=== PATIENT | female | born 1960 | race American Indian/Alaskan Native ===

== ENCOUNTER 2017-09-07 05:39 | Day surgery (SDC) | payer OTHER ==
[~2017-09-07 05:39] MED LIST: ANCEF/STERILE WATER 2 GM/20 ML 2 GM/20 ML SYRINGE IV NR
[2017-09-07] MEDS ORDERED: NACL BACTERIOSTATIC INFILTRATI ONE (06:35)
[2017-09-07] MEDS ORDERED: ADRENALIN IV ONE ×2 (06:55→08:10)
[2017-09-07] MEDS ORDERED: NACL 0.9% 1000 ML 1,000 ML IV SCH (07:20)
[2017-09-07] MEDS ORDERED: XYLOCAINE MPF 2% ONE (07:21)
[2017-09-07] MEDS ORDERED: DIPRIVAN 10 MG/ML IV ONE (07:22)
[2017-09-07] MEDS ORDERED: MARCAINE-EPI/PF 0.5%-1:200,000 INFILTRATI ONE (07:22)
[2017-09-07] MEDS ORDERED: DECADRON ONE ×2 (07:22→08:50)
[2017-09-07] MEDS ORDERED: VERSED ONE (07:22)
[2017-09-07] MEDS ORDERED: XYLOCAINE 1% 20 mL ONE (07:22)
[2017-09-07] MEDS ORDERED: SUBLIMAZE ONE ×2 (07:22)
[2017-09-07] MEDS ORDERED: NACL 0.9% 1000 ML 1,000 ML ONE ×2 (07:23→09:35)
--- NOTE | 2017-09-07 07:57 | Anesthesia Day of Surgery ---
Anesthesia Day of Surgery - Day of Surgery Patient Examined: Yes Patient H&P Reviewed: Yes Patient is NPO: Yes
--- NOTE | 2017-09-07 07:57 | Anesthesia Consultation ---
Anesthesia Consult and Med Hx Date of service: 09/07/17 - Airway Anesthetic Teeth Evaluation: Good ROM Head & Neck: Adequate Mental/Hyoid Distance: Adequate Mallampati Class: Class II Intubation Access Assessment: Probably Good - Cardiac Exam Cardiac Exam: RRR - Pre-Operative Health Status ASA Pre-Surgery Classification: ASA1, ASA2 Proposed Anesthetic Plan: General Nerve Block: IS - Pulmonary Hx Smoking: No Hx Sleep Apnea: No (YULIYA PRE SCREEN HIGH RISK) - Cardiovascular System Hx Hypertension: Yes (2001) - Other Systems Hx Cancer: No Hx Obesity: Yes
[2017-09-07] MEDS ORDERED: DILAUDID IV PRN (07:58)
[2017-09-07] MEDS ORDERED: NEO SYNEPHRINE/NS Syringe(OR USE) IV ONE (08:00)
[2017-09-07] MEDS ORDERED: NACL 0.9% IR ONE (08:10)
[2017-09-07] MEDS ORDERED: ZOFRAN ONE (08:50)
[2017-09-07] MEDS ORDERED: ZOFRAN IV PRN (09:00)
--- NOTE | 2017-09-07 09:06 | Short Stay Summary ---
Short Stay Documentation Date of service: 09/07/17 - History H&P: obtained from office - Allergies and Medications Current Medications: Allergies Tetracyclines Allergy (Verified 09/01/17 15:30) Vomiting Home Medications Medication Instructions Recorded Confirmed Last Taken Type Diclofenac [Holly Soliz] 75 mg PO DAILY 09/01/17 09/07/17 08/31/17 09:00 History Lisinopril/Hydrochlorothiazide 1 each PO DAILY 09/01/17 09/07/17 09/07/17 05:00 History [Zestoretic 10-12.5 mg Tablet] Active Medications Hydromorphone HCl (Dilaudid) 0.5 mg IV Q10MIN PRN PRN Reason: Pain , Severe (7-10) Stop: 09/07/17 12:00 Cefazolin Sodium (Ancef/Sterile Water 2 Gm/20 Ml) 2 gm in 20 mls @ 80 mls/hr IV PREOP NR PRN Reason: Protocol Stop: 09/07/17 23:59 Sodium Chloride (Nacl 0.9% 1000 Ml) 1,000 mls @ 75 mls/hr IV DIRECT ADELINA - Brief post op/procedure progress note Date of procedure: 09/07/17 Pre-op diagnosis: right shoulder pain, ac joint arthritis, tear anterior labrum , tear rotator Post-op diagnosis: other (right shoulder pain, AC joint arthritis, extensive subacromial bursitis, degenerative wear of the anterior labrum, large loose bodies, extensive subacromial bursitis) Procedure: right shoulder arthroscopy subacromial decompression, distal clavicle excision, debriedment of extensive subacromial bursitis, debriedment of partial thickness rotator cuff tear, debriedment of degenerative wear of anterior labrum, removal of large loose bodies Anesthesia: GETA Findings: as above Surgeon: JESSENIA BOATENG Organ Teacher: FRANCIS CAMPBELL III Estimated blood loss: minimal Pathology: none Condition: stable - Hospital course Hospital course: no perioperative complications - Disposition Condition at discharge: Stable Disposition: -01 TO HOME OR SELFCARE Short Stay Discharge Plan Follow up with: PRIMARY CARE, [Primary Care Provider] - 7 Days
--- NOTE | 2017-09-07 10:02 | Post Anesthesia Evaluation ---
- Post Anesthesia Evaluation Patient Participated: Yes Airway Patent: Yes Stable Respiratory Function: Yes Nausea/Vomiting: No Temp > 96.8F: Yes Pain Manageable: Yes Adequeate Hydration: Yes Anesthesia Complications: No Patient on Ventilator: No
--- NOTE | 2017-09-07 13:09 | Operative Report ---
PREOPERATIVE DIAGNOSES: Persistent right shoulder pain, acromioclavicular joint arthritis, degenerative wear, possible tearing of the anterior labrum, partial thickness rotator cuff tear. POSTOPERATIVE DIAGNOSES: Persistent right shoulder pain, advanced acromioclavicular joint arthritic change with a type 2 acromion with inferior spurs of distal clavicle and acromion causing severe impingement upon the rotator cuff. Degenerative wear of the anterior labrum causing significant impingement within the intra-articular aspect of the shoulder joint, marked grade 2/3 articular cartilage loss in the central aspect of the weightbearing portion of the humeral head with very large copious amounts of loose bodies measuring greater than 1 cm in circumference. Partial thickness articular-sided rotator cuff tear involving supraspinatus tendon involving less than 10% of the width of the tendon, extensive subacromial bursitis. OPERATIVE PROCEDURES: Right shoulder arthroscopy, subacromial decompression, distal clavicle excision, debridement of extensive subacromial bursitis, debridement of partial thickness rotator cuff tear, debridement of degenerative wear of the anterior labrum, removal of copious amounts of large cartilaginous loose bodies measuring larger than 1 cm in circumference. SURGEON: Tobin Kunz M.D. ENGINEERING ANALYST: Jose Minaya M.D. ANESTHESIA: General plus interscalene block to the operative right upper extremity. PREOPERATIVE ANTIBIOTICS: Ancef 2 g IV within 1 hour of skin incision. DVT PROPHYLAXIS: Open-toe, thigh-high compression stockings and SCD pumps to bilateral lower extremities. OPERATIVE COMPLICATIONS: None. OPERATIVE HISTORY and PHYSICAL: This is a 57-year-old female who has had persistent progressive worsening right shoulder pain, which has failed to improve despite extensive nonoperative treatment. The pain is markedly limiting her day-to-day activities and she has marked limitation of normal usage and it is her dominant arm. MRI scan was performed, which was positive for acromioclavicular joint arthritic changes, partial thickness rotator cuff tear as well as degenerative tearing of the anterior labrum. The patient's MRI findings and diagnosis were discussed at length to make sure the patient understood her diagnoses and all of her questions were answered. We then discussed treatment alternatives, surgical and nonsurgical including risks and benefits of both. After a long lengthy discussion, the patient opted to proceed with operative intervention. This will entail a right shoulder arthroscopy, subacromial decompression, distal clavicle excision, possible rotator cuff repair, possible anterior labral repair, and surgery as indicated. The risk of which were discussed to include, but not exclusive of infection, blood loss, nerve damage, loss of range of motion, and persistent pain. Again, the patient understood, all of her questions were answered. She wished to proceed with operative intervention. OPERATIVE PROCEDURE: The patient was seen in the preop holding area at which point, informed consent was reviewed and the appropriate right upper extremity was identified and then marked. Anesthesia then performed with interscalene block to the right upper extremity. After confirmation of adequate anesthesia to the right upper extremity, the patient was then brought back to the operating room and placed supine on a standard operative table with the beach chair positioner already in place. General anesthesia was administered and endotracheal tube was inserted. After confirmation of adequate general anesthesia and appropriate placement of endotracheal tube, we then made sure that all bony prominences were well padded that there were no wrinkles in the compression stockings on bilateral lower extremities and SCD pumps were applied to bilateral lower extremities. The patient is up in the beach chair position. Using the beachchair positioner which was already in place, the head was secured in a nice neutral position. The well left arm was secured in neutral position on the patient's side with the aid of the well arm schaffer. A pillow was placed beneath the posterior aspect of bilateral lower extremities placed behind the posterior thigh, placed in slight flexion of the hips and knees making sure the popliteal fossa was free and clear. The hip was secured in nice neutral position. The right upper extremity was then examined under anesthesia. The patient was seen to have full range of motion with no evidence of instability. Following examination under anesthesia, the right upper extremity was then prepped and draped in the usual sterile fashion. After prepping and draping, a timeout was called. Appropriate right upper extremity was identified, which again had been marked in the preoperative holding area. We began the procedure by first making a standard posterior portal with #15 blade. Once the portal was established, a cannula with blunt trocar were inserted into the intra-articular aspect of the glenohumeral joint. This went without difficulty or damage to articular cartilage. Once in place, the arthroscopic camera was immediately placed in the anterior aspect of shoulder joint to establish an anterior portal by first turning 18-gauge spinal needle in the subscapularis and biceps tendon under direct arthroscopic visualization. Once confirmed to be appropriately positioned, a 15 blade was then used to establish an anterior portal. Once the portal was established, a blunt trocar was inserted to widen the portal site. Followed with an arthroscopic probe, we began our diagnostic arthroscopy in the anterior aspect of shoulder joint. The subscapularis tendon was seen to be intact and stable when probed. There was a normal middle glenohumeral ligament. There was copious amounts of adhesions located diffusely throughout the intra-articular aspect and anterior aspect of the shoulder. There were also very large cartilaginous loose bodies measuring greater than 1 cm in circumference. There was marked degenerative wear of the anterior labrum, which was gently debrided using a 4.0 meniscal shaver as well as some slight degeneration of the superior labrum, which was also debrided. The bicep tendon was seen to be intact. Next, the shoulder is in its normal relation. There is grade 2/3 articular cartilage loss near measuring approximately 2 cm circumference on the central posterior aspect of the humeral head. The posterior labrum was seen to be intact and stable when probed. There were copious amounts of cartilaginous loose bodies located diffusely throughout the axillary recess. There was normal barrier without a Hill-Sachs lesion. The large cartilage loose bodies were removed using the arthroscopic shaver as well as arthroscopic graspers. Once completed, we turned our attention to the articular side of the rotator cuff which should be partial tearing of supraspinatus tendon encompassing less than 10% of the width of the tendon, which was gently debrided using a 4.0 meniscal shaver, using stable mechanical technique. Once complete, the arthroscopic pump was turned off to make sure there was good hemostasis. Once this was confirmed, a straight full suction from the glenohumeral joint using the arthroscopic cannula. Arthroscopic instrumentation was removed from the glenohumeral joint and then placed in subacromial space. Once in the subacromial space, we saw there was extensive subacromial bursitis. A third incision was made in the lateral aspect of the shoulder left distal clavicle away from axillary nerve and once the incision was made, the extensive subacromial bursitis was debrided using the 4.0 meniscal shaver. Hemostasis was achieved with the Arthrocare ablation wand. Following this, the arm was placed to full range of motion. We saw there was severe impingement of the rotator cuff upon the undersurface of both the acromion and the distal clavicle. Following this, the acromion was debrided using Arthrocare ablation wand and then using the 4.0 hooded barrel bur, we carried out a subacromial decompression in standard fashion from inferior to superior, posterior to anterior to make sure we do not leave any residual anterior hook. The coracoacromial ligament was also seen to be markedly pathologic and thickening and contributing to impingement. Therefore, it was taken down, making careful attention to cauterize the acromial branch of the thoracoacromial artery. We then turned our attention to the distal clavicle, which was also seen to be arthritic. Using the 4.0 hooded barrel bur, a distal clavicle excision to a depth of approximately 6-8 mm was completed. We inspected the bursal side of rotator cuff, which seemed to be intact and stable when probed. The arm was again placed through a full range of motion. We saw that there was no further impingement of the rotator cuff on the undersurface of the acromion of the distal clavicle. The arthroscopic pump again was turned off to make sure there was good hemostasis. Once this was confirmed, the extraneous fluid was suctioned from the subacromial space using the arthroscopic cannula. Following this, all the arthroscopic instrumentation was removed. The 3 portal sites were closed with 3-0 nylon in simple fashion. Adaptic, 4 x 4s, ABD, paper tape, small abduction sling was applied. The patient sat down from the beachchair back in the supine position, was awakened from general anesthesia without complications, and taken to the recovery room in stable condition. Standard postoperative orders was written. JOB# [id number] OBI/SHANICE
[2017-09-07 15:47] VITALS: BP 134/73
== END 2017-09-07 05:40 | disposition home or self-care (01) ==
LOC: OR 05:39
PROVIDERS: ATTEND Orthopaedic Surgery
DX: S46.011A Strain of muscle(s) and tendon(s) of the rotator cuff of right shoulder, initial encounter (principal); M25.511 Pain in right shoulder; M75.51 Bursitis of right shoulder; M25.811 Other specified joint disorders, right shoulder; M94.8X1 Other specified disorders of cartilage, shoulder; M24.011 Loose body in right shoulder; M13.811 Other specified arthritis, right shoulder; X58.XXXA Exposure to other specified factors, initial encounter; Y93.89 Activity, other specified; Y92.89 Other specified places as the place of occurrence of the external cause; Y99.8 Other external cause status
CPT/HCPCS: 29823; 29824; 29826; 81025; A4217; J0171; J0690; J1100; J2250; J2370; J2405; J2704; J3010; J7030; L1830